=== PATIENT | female | born 1955 | race Caucasian/White ===

== ENCOUNTER 2016-09-12 19:45 | Outpatient (CLI) | payer MEDICARE, MEDICAID | END 2016-09-12 19:46 | disposition home or self-care (01) | DX: J06.9 Acute upper respiratory infection, unspecified (principal) ==

== ENCOUNTER 2016-09-21 15:17 | Outpatient (CLI) | payer MEDICARE, MEDICAID | END 2016-09-21 15:18 | disposition home or self-care (01) | DX: J11.1 Influenza due to unidentified influenza virus with other respiratory manifestations (principal) ==